=== PATIENT | male | born 1970 | race Caucasian/White ===

== ENCOUNTER 2020-07-25 21:57 | Emergency (ER) | payer OTHER ==
[~2020-07-25] VITALS: Ht 182.9 cm; Wt 90.7 kg
--- NOTE | 2020-07-25 22:59 | REPVR ---
PROCEDURE INFORMATION: Exam: US Scrotum Exam date and time: 07/25/2020 10:44 PM Age: 49 years old Clinical indication: Scrotum pain; Additional info: Right testicular pain TECHNIQUE: Imaging protocol: Real-time ultrasound of the scrotum and contents with color Doppler and image documentation. COMPARISON: No relevant prior studies available. FINDINGS: Right testicle: The right testis demonstrates homogeneous parenchyma and measures 2.9 x 3.8 x 2.2 cm with blood flow which is relatively increased compared to the left. Doppler waveforms are within normal limits with a resistive index of 0.44. Left testicle: The left testis is homogeneous and measures 2.7 x 4.3 x 2.2 cm and demonstrates normal blood flow. Doppler waveforms are normal with a resistive index of 0.46 Epididymides: The right epididymal head measures 8 mm. The left epididymal head measures 7-8 mm. Scrotum: Mild right hydrocele with debris. Minimal left hydrocele. IMPRESSION: 1. Mildly increased blood flow to the right testis suggesting orchitis. 2. Mild right hydrocele with debris and minimal left hydrocele. 3. Otherwise negative testicular sonogram. No torsion. Electronically signed by: Kris Chavira On 07/25/2020 22:58:59 PM
[2020-07-25] MEDS ORDERED: IBUP80TA PO (23:09)
[2020-07-25 23:23] VITALS: BP 159/90
[2020-07-26 00:18] LABS: CHLAMYDIA DNA AMPLIFICATION NEGATIVE (NEGATIVE); GC DNA AMPLIFICATION NEGATIVE (NEGATIVE)
== END 2020-07-25 23:27 | disposition home or self-care (01) ==
LOC: M ED 21:57
DX: N45.2 Orchitis (principal)